=== PATIENT | female | born 1985 | race African-American/Black ===

== ENCOUNTER 2018-03-19 14:02 | Emergency (ER) | payer SELFPAY ==
[~2018-03-19] VITALS: Ht 162.6 cm; Wt 61.0 kg
[~2018-03-19 14:02] MED LIST: ONDA4TAB5; TRAM50TA
[2018-03-19] MEDS ORDERED: IBUPROFEN 600MG TABLET PO ONE (15:45)
[2018-03-19 16:24] VITALS: BP 110/69
== END 2018-03-19 17:06 | disposition home or self-care (01) ==
LOC: ER 14:10
DX: S40.011A Contusion of right shoulder, initial encounter (principal); W20.8XXA Other cause of strike by thrown, projected or falling object, initial encounter; Y93.9 Activity, unspecified; Y92.89 Other specified places as the place of occurrence of the external cause; Y99.0 Civilian activity done for income or pay
CPT/HCPCS: 73030; 73060; 81025; 99284; A4565

== ENCOUNTER 2019-04-01 17:40 | Emergency (ER) | payer MEDICAID ==
[~2019-04-01] VITALS: Ht 162.6 cm; Wt 61.0 kg
[2019-04-01] MEDS ORDERED: ONDANSETRON 4MG ODT PO ONE (18:30)
[2019-04-01] MEDS ORDERED: IPRATROPIUM/ALBUTEROL 0.5-3(2.5)MG/3ML NEB HHN ONE (18:30)
[2019-04-01] MEDS ORDERED: PREDNISONE 20MG TABLET PO ONE (18:30)
[2019-04-01] MEDS ORDERED: AZITHROMYCIN 500 MG TABLET PO ONE (18:30)
[2019-04-01 19:10] LABS: CHLORIDE 108 mEq/L (98-107)
[2019-04-01 19:14] LABS: ETHANOL BLOOD < 10 mg/dL; HCG SCREEN NEGATIVE
[2019-04-01 19:15] LABS: BASOPHILS % 0.5 % (0.0-2.0); EOSINOPHILS % 0.7 % (0.0-5.0); HEMATOCRIT. 44.5 % (36.0-48.0); LYMPHOCYTES % 28.6 % (20.0-50.0); MEAN CORPUSCULAR HEMOGLOBIN 31.3 pg (28.0-32.0); MEAN CORPUSCULAR VOLUME 92.9 fL (81.0-99.0); MONOCYTES % 8.5 % (2.0-8.0); NEUTROPHILS % 61.7 % (40.0-76.0); PLATELET 212 x1000/uL (130-400); RED BLOOD CELL COUNT 4.79 mill/uL (4.2-5.4); RED CELL DISTRIBUTION WIDTH 13.7 % (11.6-14.6)
[2019-04-01 19:21] LABS: *AMPHETAMINES SCREEN URINE NEGATIVE (NEGATIVE)
[2019-04-01 19:22] LABS: *BARBITURATES SCREEN URINE NEGATIVE (NEGATIVE); *BENZODIAZEPINES SCREEN URINE NEGATIVE (NEGATIVE); *COCAINE SCREEN URINE NEGATIVE (NEGATIVE); METHADONE URINE SCREEN NEGATIVE (NEGATIVE); OPIATES URINE SCREEN NEGATIVE (NEGATIVE)
[2019-04-01 19:23] LABS: PHENCYCLIDINE URINE SCREEN NEGATIVE (NEGATIVE)
[2019-04-01 19:36] LABS: CANNABINOID URINE SCREEN PRESUMTIVE POSITIVE (NEGATIVE)
[2019-04-01 19:55] VITALS: BP 132/70
== END 2019-04-01 19:57 | disposition home or self-care (01) ==
LOC: ER 18:56
DX: J40 Bronchitis, not specified as acute or chronic (principal); R11.2 Nausea with vomiting, unspecified; F12.10 Cannabis abuse, uncomplicated; F17.210 Nicotine dependence, cigarettes, uncomplicated
CPT/HCPCS: 36415; 71045; 80053; 80305; 80320; 81025; 83880; 84484; 84703; 85025; 94640; 99284; 99406; J7512; J7620; Q0162; Z7610; G0480

== ENCOUNTER 2023-01-16 06:00 | Inpatient (IN) | payer OTHER, MEDICAID ==
[~2023-01-16] VITALS: Ht 157.5 cm; Wt 63.5 kg
[~2023-01-16 06:00] MED LIST changes: +ACET-2708 MT; +IBUP-2029 MT
[2023-01-16 06:07] VITALS: O2SAT 100
[2023-01-16] MEDS ORDERED: KETOROLAC 60MG/2ML VIAL IM ONE (08:00)
[2023-01-16] MEDS ORDERED: ACETAMINOPHEN WITH CODEINE 300/30MG TABLET PO ONE (08:00)
[2023-01-16] MEDS ORDERED: MORPHINE SULFATE 4 MG/ML CPJ (NOT FOR IM USE) IV STA (08:56)
[2023-01-16 09:48] LABS: BASOPHILS % 0.3 % (0.0-2.0); EOSINOPHILS % 0.5 % (0.0-5.0); HEMATOCRIT. 38.1 % (36.0-48.0); HEMOGLOBIN. 13.2 g/dL (12.0-16.0); LYMPHOCYTES % 13.3 % (20.0-50.0); MEAN CORPUSCULAR HEMOGLOBIN 31.6 pg (28.0-32.0); MEAN CORPUSCULAR VOLUME 91.4 fL (81.0-99.0); MEAN PLATELET VOLUME 8.8 fl (7.4-10.4); MONOCYTES % 10.2 % (2.0-8.0); NEUTROPHILS % 75.7 % (40.0-76.0); PLATELET 215 x1000/uL (130-400); RED BLOOD CELL COUNT 4.17 mill/uL (4.2-5.4); RED CELL DISTRIBUTION WIDTH 13.2 % (11.6-14.6)
[2023-01-16 10:43] LABS: CHLORIDE 110 mEq/L (98-107)
[2023-01-16] MEDS ORDERED: MORPHINE SULFATE 4 MG/ML CPJ (NOT FOR IM USE) IV NR (10:45)
[2023-01-16 11:15] LABS: PROTHROMBIN TIME 10.9 sec (9.6-11.0)
[2023-01-16 20:00] VITALS: BP 122/81; PULSE 64; RESP 19; TEMP 99
[2023-01-16] MEDS ORDERED: NALOXONE HCL 0.4MG/ML VIAL IV PRN (20:45)
[2023-01-16] MEDS: HYDROCODONE/ACETAMINOPHEN 10/325MG TABLET PO PRN (20:51)
[2023-01-17] VITALS: BP 121/61; PULSE 60; RESP 20; TEMP 97.9
[2023-01-17 00:17] VITALS: BP 122/81; PULSE 64; RESP 19; TEMP 99
[2023-01-17 04:00] VITALS: BP 107/65; PULSE 60; RESP 20; TEMP 98.2
[2023-01-17 05:05] VITALS: BP 121/61; PULSE 60; RESP 20
[2023-01-17] MEDS: HYDROCODONE/ACETAMINOPHEN 10/325MG TABLET PO PRN (05:05)
[2023-01-17] MEDS ORDERED: ONDANSETRON HCL 4MG/2ML INJ IV PRN (09:15)
== END 2023-01-17 12:48 | disposition left against medical advice (07) | DRG 347 ==
LOC: ER 06:00 → 6EST 12:08 → EDBEDREQ 12:45 → EDBEDREQTM 12:45
PROVIDERS: ADMIT Internal Medicine; ATTEND Internal Medicine
DX: M48.02 Spinal stenosis, cervical region (principal); Z53.29 Procedure and treatment not carried out because of patient's decision for other reasons
CPT/HCPCS: 36415; 71045; 72141; 80053; 85025; 99285; J1885; J2270